=== PATIENT | female | born 1995 | race American Indian/Alaskan Native ===

== ENCOUNTER 2019-03-13 11:51 | Emergency (ER) | payer SELFPAY ==
[2019-03-13 12:20] VITALS: BP 113/74
--- NOTE | 2019-03-13 12:21 | Emergency Department Report ---
Chief Complaint: Medical Clearance Stated Complaint: GROIN ISSUE Time Seen by Provider: 03/13/19 12:19 - HPI History of Present Illness: Ms. Mayers desires confirmation and treatment for BV. Denies pain or vaginal bleeding. MSE screening note: Focused history and physical exam performed. Due to findings the following was ordered: ED Disposition for MSE Clinical Impression: Encounter for medical screening examination Disposition: MED SCREENING EXAM-LEFT Condition: Stable Referrals: JUANITA TIAN MD [Staff Physician] - 3-5 Days [facility] [Outside] - 3-5 Days
== END 2019-03-13 12:46 | disposition left against medical advice (07) ==
LOC: ED 11:51
DX: Z00.8 Encounter for other general examination (principal)
CPT/HCPCS: 99281